=== PATIENT | male | born 1985 | race Two or more races ===

== ENCOUNTER 2020-02-08 10:53 | Emergency (ER) | payer SELFPAY ==
[2020-02-08 11:27] VITALS: BP 137/94; PULSE 89; RESP 16; TEMP 36.8; O2SAT 95
--- NOTE | 2020-02-08 12:02 | ED.ABDPAIN ---
HPI - Abdominal Pain General Chief Complaint: Ear Stated Complaint: left ear pain Time Seen by Provider: 02/08/20 11:04 Source: patient Mode of arrival: ambulatory Limitations: no limitations History of Present Illness HPI narrative: Patient is a 34-year-old male who presents to emergency department for evaluation of left ear pain for the last several days notes aching pain has not taken anything for his symptoms denies similar occurrence in the past denies other complaints or concerns at this time and is otherwise resting comfortably in the room on arrival Related Data Allergies Allergy/AdvReac Type Severity Reaction Status Date / Time No Known Allergies Allergy Verified 02/08/20 12:01 Review of Systems Review of Systems: All systems reviewed & are unremarkable except as noted in HPI and below PMFSH Social History Social History (Updated 02/08/20 @ 12:05 by Brian Kiser PA-C) Smoking status: Current every day smoker Exam Narrative: Exam Narrative: GENERAL: Well-appearing, well-nourished, and in no acute distress. HEAD: Normocephalic, atraumatic. EYES: PERRLA and EOMI. ENT: Nares clear, no rhinorrhea or epistaxis. Mucous membranes moist. Oropharynx without tonsillar hypertrophy exudate or other lesions. Right ear nonerythematous nonbulging. Left TM erythematous with poor landmarks NECK: Supple. No adenopathy or masses. CHEST: Clear to auscultation. No respiratory distress. No wheezes rales or rhonchi HEART: Regular rate and rhythm. No murmur heard. EXTREMITIES: Normal range of motion. No edema. SKIN: Warm, dry, no rash. NEURO: No focal deficits. Alert and oriented x3. PSYCH: Normal mood and affect. Course Course Emergency Course: Patient in the room in no distress aware of case findings treatment plan and diagnosis agreeing to follow-up as directed Vital Signs Vital signs: Vital Signs Temperature 98.2 F 02/08/20 11:27 Pulse Rate 89 02/08/20 11:27 Respiratory Rate 16 02/08/20 11:27 Blood Pressure 137/94 H 02/08/20 11:27 Pulse Oximetry 95 02/08/20 11:27 Temperature 98.2 F 02/08/20 11:27 Pulse Rate 89 02/08/20 11:27 Respiratory Rate 16 02/08/20 11:27 Blood Pressure 137/94 H 02/08/20 11:27 Pulse Oximetry 95 02/08/20 11:27 MDM - Abdominal Pain MDM Narrative Medical decision making narrative: Patient with otitis media afebrile nontoxic-appearing no distress felt appropriate for outpatient reevaluation Discharge Plan Discharge Clinical Impression: Otitis media Patient Disposition: Home, Self-Care Condition: Stable Instructions: Antibiotic Form, Ear Infection (ED) Additional Instructions: Follow up with your primary care doctor in 5-7 days for re-evaluation. Go to ER for worsening pain, vision changes, nausea/vomiting, fever/chills, weakness, chest pain, shortness of breath, numbness/tingling, slurred speech, difficulty walking, change in mental status etc. or any other concerns. Take any prescribed medications as directed. Prescriptions: New amoxicillin 500 mg capsule 500 mg PO TID 10 Days Qty: 30 RF: 0 ibuprofen [IBU] 600 mg tablet 600 mg PO QID PRN (Reason: fever or pain) Qty: 10 RF: 0 loratadine [Claritin] 10 mg tablet 10 mg PO DAILY PRN (Reason: allergy symptoms) Qty: 10 RF: 0 Follow-up/Referrals: UNKNOWN,DOCTOR [Primary Care Provider] - Trevor Montes MD [Physician] -
[2020-02-08] MEDS: IBUPROFEN 600 MG TABLET PO (12:05)
[2020-02-08 12:35] VITALS: TEMP 36.6
[2020-02-08 12:38] VITALS: BP 145/91; PULSE 89; RESP 19; TEMP 36.6; O2SAT 99
== END 2020-02-08 12:45 | disposition home or self-care (01) ==
PROVIDERS: Emergency Provider Emergency Medicine
DX: H66.92 Otitis media, unspecified, left ear (principal); F17.200 Nicotine dependence, unspecified, uncomplicated
CPT/HCPCS: 99283; A9270